=== PATIENT | female | born 1980 | race Hispanic/Latino ===

== ENCOUNTER → 2021-12-26 | Day surgery (SDC) | payer OTHER ==
[~2021-12-26] MED LIST: ALEVE220 M1 PO; FENTANYL CITRATE/PF 100MCG/2 ML INJ ONE; LIDOCAINE HCL 2% LOCAL INJ 5 ML SDV VIAL INJ ONE; MIDAZOLAM HCL 2 MG/2 ML VIAL ONE; PROPOFOL IV EMULSION 10 MG/ML 20 ML VIAL ONE
[2021-12-26 13:40] VITALS: BP 123/85
[2021-12-31 13:10] LABS: ENDOMYSIAL ANTIBODIES, IGA Negative (Negative)
== END | disposition home or self-care (01) ==
LOC: ENDO 10:11
PROVIDERS: ATTEND Internal Medicine Gastroenterology
DX: K21.9 Gastro-esophageal reflux disease without esophagitis (principal); K31.7 Polyp of stomach and duodenum; K29.50 Unspecified chronic gastritis without bleeding; B96.81 Helicobacter pylori [H. pylori] as the cause of diseases classified elsewhere; Q40.8 Other specified congenital malformations of upper alimentary tract; K20.90 Esophagitis, unspecified without bleeding; K44.9 Diaphragmatic hernia without obstruction or gangrene; K59.09 Other constipation; Z71.3 Dietary counseling and surveillance; R00.0 Tachycardia, unspecified; Z68.25 Body mass index [BMI] 25.0-25.9, adult; Z86.16 Personal history of COVID-19; Z80.0 Family history of malignant neoplasm of digestive organs
CPT/HCPCS: 43239; 43450; 81025; 82784; 83516; 86256; C9113; J2001; J2250; J2704; J3010

== ENCOUNTER → 2024-12-29 | Day surgery (SDC) | payer OTHER ==
[~2024-12-29] MED LIST changes: +EPINEPHRINE HCL 1:1000 1ML 1 MG/ML AMP ONE; -FENTANYL CITRATE/PF 100MCG/2 ML INJ ONE; +GAS-X125 MG; +LAX STOOL SOFT1 EACH; +METOCLOPRAMIDE HCL 10 MG/2ML VIAL ONE; -MIDAZOLAM HCL 2 MG/2 ML VIAL ONE; +PANTOPRAZOLE SO40 MG PO; +PROBIOTIC; +SODIUM CHLORIDE 0.9% 100 ML ONE; +SODIUM CHLORIDE 0.9% INJ 10 ML VIAL ONE; +SUCCINYLCHOLINE CHLORIDE 20 MG/ML 10ML VIAL ONE
[2024-12-29] MEDS: LACTATED RINGER'S 1,000 ML ONE (06:04)
[2024-12-29 07:50] VITALS: BP 118/82; PULSE 77; RESP 16; O2SAT 97
[2025-01-01 09:11] LABS: ENDOMYSIAL ANTIBODIES, IGA Negative (Negative)
[2025-01-01 13:24] LABS: TISSUE TRANSGLUTAMINASE IGA AB 4 U/mL (0-3)
== END | disposition home or self-care (01) ==
LOC: OR 05:38
PROVIDERS: ATTEND Internal Medicine Gastroenterology
DX: K20.90 Esophagitis, unspecified without bleeding (principal); K44.9 Diaphragmatic hernia without obstruction or gangrene; K29.70 Gastritis, unspecified, without bleeding; E78.5 Hyperlipidemia, unspecified; G47.33 Obstructive sleep apnea (adult) (pediatric)
CPT/HCPCS: 43239; 81025; 82784; 83516; 86256; J0169; J0330; J2003; J2470; J2704; J2765; J7050; J7121

== ENCOUNTER 2025-03-22 14:32 | Emergency (ER) | payer OTHER ==
[~2025-03-22] VITALS: Ht 157.5 cm; Wt 62.6 kg
[~2025-03-22 14:32] MED LIST changes: -EPINEPHRINE HCL 1:1000 1ML 1 MG/ML AMP ONE; -LIDOCAINE HCL 2% LOCAL INJ 5 ML SDV VIAL INJ ONE; -METOCLOPRAMIDE HCL 10 MG/2ML VIAL ONE; -PROPOFOL IV EMULSION 10 MG/ML 20 ML VIAL ONE; -SODIUM CHLORIDE 0.9% 100 ML ONE; -SODIUM CHLORIDE 0.9% INJ 10 ML VIAL ONE; -SUCCINYLCHOLINE CHLORIDE 20 MG/ML 10ML VIAL ONE
[2025-03-22] MEDS ORDERED: ONDANSETRON HCL INJ 2MG/ML 2ML 2 MG/ML VIAL IV PRN (16:45)
[2025-03-22 16:50] LABS: BASOPHILS % 1.2 % (0.0-1.0); EOSINOPHILS % 3.0 % (0.0-6.0); LYMPHOCYTES % 26.8 % (18.0-39.1); MONOCYTES % 8.3 % (4.4-11.3); NEUTROPHILS % 60.4 % (38.7-80.0); RED CELL DISTRIBUTION WIDTH 14.8 % (11.7-14.4)
[2025-03-22] MEDS: SODIUM CHLORIDE 0.9% 1000ML 1,000 ML IV STA (17:05)
[2025-03-22 17:07] LABS: EST GLOMERULAR FILTRATION RATE 104.0 ML/MIN (>=60)
[2025-03-22] MEDS: KETOROLAC TROMETHAMINE 30 MG/ML VIAL IV STA (17:09)
[2025-03-22] MEDS ORDERED: IOPAMIDOL 370 MG/ML 100 ML INFUS..BTL INJ ONE (17:16)
[2025-03-22 18:47] VITALS: PULSE 68; RESP 17; TEMP 97.9
[2025-03-22 18:50] LABS: LEUKOCYTE ESTERASE ,URINE NEGATIVE (NEGATIVE); PROTEIN,URINE DIPSTICK NEGATIVE (NEGATIVE); URINE UROBILINOGEN 0.2 mg/dL (0.2 - 1)
[2025-03-22 19:05] LABS: EPITHELIAL CELLS,URINE MODERATE /LPF; WBC,URINE (MAN) 0-5 /HPF (0-5)
[2025-03-22] MEDS ORDERED: PANTOPRAZOLE SO40 MG PO (19:34)
[2025-03-22] MEDS ORDERED: DICYCLOMINE HCL20 MG PO (19:34)
[2025-03-22] MEDS ORDERED: ONDANSETRON ODT4 MG SL (19:34)
[2025-03-22 19:37] VITALS: BP 138/92; PULSE 73; RESP 17; TEMP 98; O2SAT 100
== END 2025-03-22 19:50 | disposition home or self-care (01) ==
LOC: ER 18:09
DX: R10.11 Right upper quadrant pain (principal); K76.0 Fatty (change of) liver, not elsewhere classified
CPT/HCPCS: 36415; 74177; 80053; 81001; 83690; 84702; 85025; 99284; J1885; J2405; J7030; Q9967